=== PATIENT | female | born 1965 | race Caucasian/White ===

== ENCOUNTER 2022-09-30 10:19 | Outpatient (CLI) | payer BC | END 2022-09-30 10:20 | disposition home or self-care (01) | LOC: CSHWCC 10:19 | PROVIDERS: ATTEND Nurse Practitioner Family | DX: I87.332 Chronic venous hypertension (idiopathic) with ulcer and inflammation of left lower extremity (principal); L97.323 Non-pressure chronic ulcer of left ankle with necrosis of muscle; R60.0 Localized edema | CPT/HCPCS: 11042; 97607 ==

== ENCOUNTER 2022-10-05 15:11 | Outpatient (CLI) | payer BC | END 2022-10-05 15:12 | disposition home or self-care (01) | LOC: CSHWCC 15:11 | PROVIDERS: ATTEND Nurse Practitioner Family | DX: I87.332 Chronic venous hypertension (idiopathic) with ulcer and inflammation of left lower extremity (principal); L97.323 Non-pressure chronic ulcer of left ankle with necrosis of muscle; R60.0 Localized edema | CPT/HCPCS: 29581; 87070; 87205; 99213; G0463 ==

== ENCOUNTER 2022-10-10 15:19 | Outpatient (CLI) | payer BC | END 2022-10-10 15:20 | disposition home or self-care (01) | LOC: CSHWCC 15:19 | PROVIDERS: ATTEND Nurse Practitioner Family | DX: I87.332 Chronic venous hypertension (idiopathic) with ulcer and inflammation of left lower extremity (principal); L97.323 Non-pressure chronic ulcer of left ankle with necrosis of muscle; R60.0 Localized edema | CPT/HCPCS: 29581; 97607; 99212; G0463 ==

== ENCOUNTER 2022-10-18 12:46 | Outpatient (CLI) | payer BC | END 2022-10-18 12:47 | disposition home or self-care (01) | LOC: CSHWCC 12:46 | PROVIDERS: ATTEND Nurse Practitioner Family | DX: I87.332 Chronic venous hypertension (idiopathic) with ulcer and inflammation of left lower extremity (principal); L97.323 Non-pressure chronic ulcer of left ankle with necrosis of muscle; R60.0 Localized edema | CPT/HCPCS: 97607; 99212; G0463 ==

== ENCOUNTER 2022-10-25 13:55 | Outpatient (CLI) | payer BC | END 2022-10-25 13:56 | disposition home or self-care (01) | LOC: CSHWCC 13:55 | PROVIDERS: ATTEND Nurse Practitioner Family | DX: I87.332 Chronic venous hypertension (idiopathic) with ulcer and inflammation of left lower extremity (principal); L97.323 Non-pressure chronic ulcer of left ankle with necrosis of muscle; R60.0 Localized edema ==

== ENCOUNTER 2022-11-01 08:45 | Outpatient (CLI) | payer BC | END 2022-11-01 08:46 | disposition home or self-care (01) | LOC: CSHWCC 08:45 | PROVIDERS: ATTEND Nurse Practitioner Family | DX: I87.332 Chronic venous hypertension (idiopathic) with ulcer and inflammation of left lower extremity (principal); L97.323 Non-pressure chronic ulcer of left ankle with necrosis of muscle; R60.0 Localized edema | CPT/HCPCS: 29581; 97607 ==

== ENCOUNTER 2022-11-09 13:23 | Outpatient (CLI) | payer BC | END 2022-11-09 13:24 | disposition home or self-care (01) | LOC: CSHWCC 13:23 | PROVIDERS: ATTEND Nurse Practitioner Family | DX: I87.332 Chronic venous hypertension (idiopathic) with ulcer and inflammation of left lower extremity (principal); L97.323 Non-pressure chronic ulcer of left ankle with necrosis of muscle; R60.0 Localized edema | CPT/HCPCS: 29581; 97607 ==

== ENCOUNTER 2022-11-15 08:06 | Outpatient (CLI) | payer BC | END 2022-11-15 08:07 | disposition home or self-care (01) | LOC: CSHWCC 08:06 | PROVIDERS: ATTEND Nurse Practitioner Family | DX: I87.332 Chronic venous hypertension (idiopathic) with ulcer and inflammation of left lower extremity (principal); L97.323 Non-pressure chronic ulcer of left ankle with necrosis of muscle; R60.0 Localized edema | CPT/HCPCS: 29581; 97607; 99212; G0463 ==

== ENCOUNTER 2022-11-23 07:59 | Outpatient (CLI) | payer BC | END 2022-11-23 08:00 | disposition home or self-care (01) | LOC: CSHWCC 07:59 | PROVIDERS: ATTEND Nurse Practitioner Family | DX: I87.332 Chronic venous hypertension (idiopathic) with ulcer and inflammation of left lower extremity (principal); L97.323 Non-pressure chronic ulcer of left ankle with necrosis of muscle; R60.0 Localized edema | CPT/HCPCS: 99213; G0463 ==

== ENCOUNTER 2022-11-30 08:15 | Outpatient (CLI) | payer BC | END 2022-11-30 08:16 | disposition home or self-care (01) | LOC: CSHWCC 08:15 | PROVIDERS: ATTEND Nurse Practitioner Family | DX: I87.332 Chronic venous hypertension (idiopathic) with ulcer and inflammation of left lower extremity (principal); L97.323 Non-pressure chronic ulcer of left ankle with necrosis of muscle; R60.0 Localized edema | CPT/HCPCS: 99213; G0463 ==

== ENCOUNTER 2022-12-15 13:48 | Outpatient (CLI) | payer BC | END 2022-12-15 13:49 | disposition home or self-care (01) | LOC: CSHWCC 13:48 | PROVIDERS: ATTEND Nurse Practitioner Family | DX: I87.332 Chronic venous hypertension (idiopathic) with ulcer and inflammation of left lower extremity (principal); L97.323 Non-pressure chronic ulcer of left ankle with necrosis of muscle; R60.0 Localized edema ==

== ENCOUNTER 2022-12-29 13:01 | Outpatient (CLI) | payer BC | END 2022-12-29 13:02 | disposition home or self-care (01) | LOC: CSHWCC 13:01 | PROVIDERS: ATTEND Nurse Practitioner Family | DX: E11.621 Type 2 diabetes mellitus with foot ulcer (principal); I87.332 Chronic venous hypertension (idiopathic) with ulcer and inflammation of left lower extremity; L97.323 Non-pressure chronic ulcer of left ankle with necrosis of muscle ==

== ENCOUNTER 2023-03-16 09:11 | Outpatient (CLI) | payer BC | END 2023-03-16 09:12 | disposition home or self-care (01) | LOC: CSHWCC 09:11 | PROVIDERS: ATTEND Nurse Practitioner Family | DX: E11.621 Type 2 diabetes mellitus with foot ulcer (principal); L97.412 Non-pressure chronic ulcer of right heel and midfoot with fat layer exposed | CPT/HCPCS: 29445; 97597 ==

== ENCOUNTER 2023-03-27 08:49 | Outpatient (CLI) | payer BC | END 2023-03-27 08:50 | disposition home or self-care (01) | LOC: CSHWCC 08:49 | PROVIDERS: ATTEND Nurse Practitioner Family | DX: E11.621 Type 2 diabetes mellitus with foot ulcer (principal); L97.412 Non-pressure chronic ulcer of right heel and midfoot with fat layer exposed | CPT/HCPCS: 29445; 97597 ==

== ENCOUNTER 2023-03-30 08:47 | Outpatient (CLI) | payer BC | END 2023-03-30 08:48 | disposition home or self-care (01) | LOC: CSHWCC 08:47 | PROVIDERS: ATTEND Nurse Practitioner Family | DX: E11.621 Type 2 diabetes mellitus with foot ulcer (principal); L97.412 Non-pressure chronic ulcer of right heel and midfoot with fat layer exposed | CPT/HCPCS: 29445 ==

== ENCOUNTER 2023-04-06 08:15 | Outpatient (CLI) | payer BC | END 2023-04-06 08:16 | disposition home or self-care (01) | LOC: CSHWCC 08:15 | PROVIDERS: ATTEND Nurse Practitioner Family | DX: E11.621 Type 2 diabetes mellitus with foot ulcer (principal); L97.412 Non-pressure chronic ulcer of right heel and midfoot with fat layer exposed | CPT/HCPCS: 29445; 97597 ==

== ENCOUNTER 2023-04-13 08:20 | Outpatient (CLI) | payer BC | END 2023-04-13 08:21 | disposition home or self-care (01) | LOC: CSHWCC 08:20 | PROVIDERS: ATTEND Nurse Practitioner Family | DX: E11.621 Type 2 diabetes mellitus with foot ulcer (principal); L97.412 Non-pressure chronic ulcer of right heel and midfoot with fat layer exposed ==

== ENCOUNTER 2023-04-20 14:07 | Outpatient (CLI) | payer BC | END 2023-04-20 14:08 | disposition home or self-care (01) | LOC: CSHWCC 14:07 | PROVIDERS: ATTEND Nurse Practitioner Family | DX: E11.621 Type 2 diabetes mellitus with foot ulcer (principal); L97.412 Non-pressure chronic ulcer of right heel and midfoot with fat layer exposed | CPT/HCPCS: 29445 ==

== ENCOUNTER 2023-04-27 13:16 | Outpatient (CLI) | payer BC | END 2023-04-27 13:17 | disposition home or self-care (01) | LOC: CSHWCC 13:16 | PROVIDERS: ATTEND Nurse Practitioner Family | DX: E11.621 Type 2 diabetes mellitus with foot ulcer (principal); L97.412 Non-pressure chronic ulcer of right heel and midfoot with fat layer exposed | CPT/HCPCS: 29445 ==

== ENCOUNTER 2023-05-04 13:05 | Outpatient (CLI) | payer BC | END 2023-05-04 13:06 | disposition home or self-care (01) | LOC: CSHWCC 13:05 | PROVIDERS: ATTEND Nurse Practitioner Family | DX: E11.621 Type 2 diabetes mellitus with foot ulcer (principal); L97.412 Non-pressure chronic ulcer of right heel and midfoot with fat layer exposed | CPT/HCPCS: 29445 ==

== ENCOUNTER 2023-05-11 14:02 | Outpatient (CLI) | payer BC | END 2023-05-11 14:03 | disposition home or self-care (01) | LOC: CSHWCC 14:02 | PROVIDERS: ATTEND Nurse Practitioner Family | DX: E11.621 Type 2 diabetes mellitus with foot ulcer (principal); L97.412 Non-pressure chronic ulcer of right heel and midfoot with fat layer exposed | CPT/HCPCS: 29445 ==

== ENCOUNTER 2023-05-17 09:14 | Outpatient (CLI) | payer BC | END 2023-05-17 09:15 | disposition home or self-care (01) | LOC: CSHWCC 09:14 | PROVIDERS: ATTEND Nurse Practitioner Family | DX: E11.621 Type 2 diabetes mellitus with foot ulcer (principal); L97.412 Non-pressure chronic ulcer of right heel and midfoot with fat layer exposed | CPT/HCPCS: 99213; G0463 ==

== ENCOUNTER 2023-05-31 08:21 | Outpatient (CLI) | payer BC | END 2023-05-31 08:22 | disposition home or self-care (01) | LOC: CSHWCC 08:21 | PROVIDERS: ATTEND Nurse Practitioner Family | DX: E11.621 Type 2 diabetes mellitus with foot ulcer (principal); L97.412 Non-pressure chronic ulcer of right heel and midfoot with fat layer exposed | CPT/HCPCS: 99211; G0463 ==

== ENCOUNTER 2023-06-22 14:31 | Outpatient (CLI) | payer BC | END 2023-06-22 14:32 | disposition home or self-care (01) | LOC: CSHWCC 14:31 | PROVIDERS: ATTEND Preventive Medicine Undersea and Hyperbaric Medicine | DX: E11.621 Type 2 diabetes mellitus with foot ulcer (principal); L97.412 Non-pressure chronic ulcer of right heel and midfoot with fat layer exposed | CPT/HCPCS: 29445 ==

== ENCOUNTER 2023-06-29 12:51 | Outpatient (CLI) | payer BC | END 2023-06-29 12:52 | disposition home or self-care (01) | LOC: CSHWCC 12:51 | PROVIDERS: ATTEND Physician Assistant | DX: E11.621 Type 2 diabetes mellitus with foot ulcer (principal); L97.412 Non-pressure chronic ulcer of right heel and midfoot with fat layer exposed | CPT/HCPCS: 29445 ==

== ENCOUNTER 2023-07-06 12:49 | Outpatient (CLI) | payer BC | END 2023-07-06 12:50 | disposition home or self-care (01) | LOC: CSHWCC 12:49 | PROVIDERS: ATTEND Preventive Medicine Undersea and Hyperbaric Medicine | DX: E11.621 Type 2 diabetes mellitus with foot ulcer (principal); L97.412 Non-pressure chronic ulcer of right heel and midfoot with fat layer exposed | CPT/HCPCS: 11055 ==

== ENCOUNTER 2023-07-20 13:00 | Outpatient (CLI) | payer BC | END 2023-07-20 13:01 | disposition home or self-care (01) | LOC: CSHWCC 13:00 | PROVIDERS: ATTEND Physician Assistant | DX: E11.621 Type 2 diabetes mellitus with foot ulcer (principal); L97.512 Non-pressure chronic ulcer of other part of right foot with fat layer exposed | CPT/HCPCS: 99212; G0463 ==

== ENCOUNTER 2024-11-06 12:45 | Outpatient (CLI) | payer BC | END 2024-11-06 12:46 | disposition home or self-care (01) | LOC: CSHWCC 12:45 | PROVIDERS: ATTEND Nurse Practitioner Family | DX: E11.621 Type 2 diabetes mellitus with foot ulcer (principal); L97.521 Non-pressure chronic ulcer of other part of left foot limited to breakdown of skin | CPT/HCPCS: 99212; G0463 ==